=== PATIENT | male | born 1945 | race Asian ===

== ENCOUNTER 2017-12-30 09:36 | Inpatient (IN) | payer MEDICARE, OTHER ==
[~2017-12-30] VITALS: Ht 167.6 cm; Wt 74.8 kg
[2017-12-30 09:44] VITALS: BP 155/59
[2017-12-30] MEDS ORDERED: TAMSULOSIN HCL0.4 MG ORAL (09:44)
[2017-12-30] MEDS ORDERED: PROSTATE 2.4 C1 EAC1 PO (09:44)
[2017-12-30] MEDS ORDERED: HYDROCODON-ACE1 EA15 ORAL (09:44)
[2017-12-30] MEDS ORDERED: [UNRECOGNIZED DRUG - CODE] PO (09:44)
[2017-12-30] MEDS ORDERED: STOOL SOFTENER250 MG PO (09:44)
[2017-12-30] MEDS ORDERED: Sodium Chloride 500ML 500 ML IV ONE (09:48)
[2017-12-30 10:19] LABS: BASOPHILS % (AUTO) 0.7 % (0.0-2.0); EOSINOPHILS % (AUTO) 1.2 % (0.0-3.0); HEMATOCRIT 40.1 % (42.0-52.0); HEMOGLOBIN 13.6 G/DL (14.2-18.0); LYMPHOCYTES % (AUTO) 27.2 % (20.0-45.0); MEAN CORPUSCULAR VOLUME 93 FL (80-99); MONOCYTES % (AUTO) 8.7 % (1.0-10.0); NEUTROPHILS % (AUTO) 62.2 % (45.0-75.0); PLATELET COUNT 219 K/UL (150-450); RED BLOOD COUNT 4.32 M/UL (4.70-6.10); RED CELL DISTRIBUTION WIDTH 12.2 % (11.6-14.8); WHITE BLOOD COUNT 6.7 K/UL (4.8-10.8)
[2017-12-30 10:42] LABS: ANION GAP 3 mmol/L (5-15); BLOOD UREA NITROGEN 34 mg/dL (7-18); CALCIUM 9.3 MG/DL (8.5-10.1); CARBON DIOXIDE 31 MMOL/L (21-32); CHLORIDE 102 MMOL/L (98-107); CREATININE 1.3 MG/DL (0.55-1.30); POTASSIUM 5.1 MMOL/L (3.5-5.1); SODIUM 136 MMOL/L (136-145)
--- NOTE | 2017-12-30 10:54 | Diagnostic Imaging Report ---
Indication: Neck pain Comparison: None Findings: Two views of the neck performed. There is no soft tissue swelling or mass identified. The epiglottis is unremarkable. Subglottic airway and retropharyngeal region appear clear. No radiopaque foreign body is identified. Bones are osteopenic. Spondylosis noted. Impression: Negative soft tissue evaluation of the neck.
[2017-12-30 10:55] LABS: ALANINE AMINOTRANSFERASE 88 U/L (12-78); ALBUMIN 3.5 G/DL (3.4-5.0); ALBUMIN/GLOBULIN RATIO 1.1 (1.0-2.7); ALKALINE PHOSPHATASE 67 U/L (46-116); ASPARTATE AMINO TRANSFERASE 57 U/L (15-37); BILIRUBIN,TOTAL 0.6 MG/DL (0.2-1.0); CREATINE KINASE 656 U/L (26-308)
--- NOTE | 2017-12-30 10:57 | Diagnostic Imaging Report ---
Indication: Cough Comparison: None A single view chest radiograph was obtained. Findings: No definite infiltrate or pulmonary vascular congestion identified. The heart is enlarged. The aorta is mildly enlarged consistent with atherosclerotic vascular disease. Moderate degenerative changes of both shoulders noted. The bones are osteopenic. Impression: No acute disease
[2017-12-30 11:31] LABS: APPEARANCE,URINE CLEAR; BILIRUBIN, URINE NEGATIVE (NEGATIVE); COLOR,URINE BROWN; GLUCOSE, URINE (UA) NEGATIVE (NEGATIVE); KETONES,URINE NEGATIVE (NEGATIVE); LEUKOCYTE ESTERASE ,URINE 1+ (NEGATIVE); NITRITE,URINE NEGATIVE (NEGATIVE); PH,URINE 5 (4.5-8.0); PROTEIN,URINE 2+ (NEGATIVE); UROBILINOGEN,URINE 1 MG/DL (0.0-1.0)
[2017-12-30 12:05] VITALS: BP 130/64
[2017-12-30] MEDS ORDERED: Acetaminophen 650 MG SUPP RECTAL PRN ×2 (12:30)
[2017-12-30] MEDS ORDERED: Albuterol/Ipratropium 3ml neb HHN PRN (12:30)
[2017-12-30] MEDS ORDERED: Miralax 17gm pkt ORAL PRN (12:30)
--- NOTE | 2017-12-30 13:20 | Emergency Room Report ---
History of Present Illness General Chief Complaint: Dizziness Source: Medical Record Present Illness HPI 72-year-old male presents ED for evaluation. Patient comes from assisted living facility with choking episode today. Nursing staff states that patient was choking on a pill and started to vomit. Possible aspiration. Upon arrival patient presenting with vomiting, mild distress. Denies shortness of breath. Denies chest pain. Denies fevers or chills. No other aggravating or relieving factors. Denies any other associated symptoms Allergies: Coded Allergies: No Known Allergies (Unverified , 12/30/17) Patient History Past Medical History: DM, HTN Pertinent Family History: none Social History: Denies: smoking, alcohol use, drug use Immunizations: UTD Reviewed Nursing Documentation: PMH: Agreed, PSxH: Agreed Nursing Documentation-PMH Hx Hypertension: Yes Hx Diabetes: Yes Review of Systems All Other Systems: negative except mentioned in HPI Physical Exam Vital Signs Date Time Temp Pulse Resp B/P (MAP) Pulse Ox O2 Delivery O2 Flow Rate FiO2 12/30/17 09:30 80 16 105/59 97 Room Air 12/30/17 09:44 98.2 98.2 Sp02 EP Interpretation: reviewed, normal General Appearance: alert, GCS 15, non-toxic, mild distress, thin Head: normocephalic Eyes: bilateral eye normal inspection, bilateral eye PERRL ENT: normal ENT inspection Neck: normal inspection Respiratory: no wheezing, crackles Cardiovascular #1: regular rate, rhythm, no edema Gastrointestinal: normal bowel sounds, non tender, soft, non-distended, no guarding, no rebound Rectal: deferred Genitourinary: no CVA tenderness Musculoskeletal: normal inspection Neurologic: alert, oriented x3, responsive, motor strength/tone normal, sensory intact, speech normal Psychiatric: judgement/insight normal, memory normal, mood/affect normal, no suicidal/homicidal ideation Skin: normal inspection Lymphatic: normal inspection Medical Decision Making Diagnostic Impression: Primary Impression: Aspiration into airway Qualified Codes: T17.908S - Unspecified foreign body in respiratory tract, part unspecified causing other injury, sequela Additional Impression: Choking in adult ER Course Hospital Course 72-year-old male presents ED with choking and vomiting episode today at assisted living Differential diagnoses include: Pneumonia, CHF exacerbation, pneumothorax, fluid overload Clinical course Patient placed on stretcher. On alarm security or surveillance monitor. After initial history and physical, I ordered labs, IV fluids, EKG, chest x-ray, blood cultures, UA. Patient placed on nasal cannula with O2 saturation improving Labs -no leukocytosis noted, hemoglobin/hematocrit stable, electrolytes ok, lactate > 2 troponins negative CXR - no signs of foreign body, soft tissue neck - no signs of foreign body EKG - NSR, no acute ischemic changes interpreted by me Clinically patient presenting with an aspiration pneumonia. Abx given. Case discussed with Dr. Medrano and he agreed to the patient to his service for further care and support I feel this is a highly complex case requiring extensive working including EKG/ Rhythm strip, Xray/CT/US, Blood/urine lab work, repeat exams while in ED, and administration of strong opiates/narcotics for pain control, admission to hospital or close patient follow up. Diagnosis - aspiration into airway, choking in adult Patient admitted to telemetry in serious condition Labs Test 12/30/17 10:05 12/30/17 11:03 12/30/17 12:18 White Blood Count 6.7 K/UL (4.8-10.8) Red Blood Count 4.32 M/UL (4.70-6.10) Hemoglobin 13.6 G/DL (14.2-18.0) Hematocrit 40.1 % (42.0-52.0) Mean Corpuscular Volume 93 FL (80-99) Mean Corpuscular Hemoglobin 31.4 PG (27.0-31.0) Mean Corpuscular Hemoglobin Concent 33.8 G/DL (32.0-36.0) Red Cell Distribution Width 12.2 % (11.6-14.8) Platelet Count 219 K/UL (150-450) Mean Platelet Volume 6.9 FL (6.5-10.1) Neutrophils (%) (Auto) 62.2 % (45.0-75.0) Lymphocytes (%) (Auto) 27.2 % (20.0-45.0) Monocytes (%) (Auto) 8.7 % (1.0-10.0) Eosinophils (%) (Auto) 1.2 % (0.0-3.0) Basophils (%) (Auto) 0.7 % (0.0-2.0) Sodium Level 136 MMOL/L (136-145) Potassium Level 5.1 MMOL/L (3.5-5.1) Chloride Level 102 MMOL/L (98-107) Carbon Dioxide Level 31 MMOL/L (21-32) Anion Gap 3 mmol/L (5-15) Blood Urea Nitrogen 34 mg/dL (7-18) Creatinine 1.3 MG/DL (0.55-1.30) Estimat Glomerular Filtration Rate mL/min (>60) Glucose Level 173 MG/DL (74-106) Lactic Acid Level 2.50 mmol/L (0.66-2.22) 1.50 mmol/L (0.66-2.22) Calcium Level 9.3 MG/DL (8.5-10.1) Total Bilirubin 0.6 MG/DL (0.2-1.0) Aspartate Amino Transf (AST/SGOT) 57 U/L (15-37) Alanine Aminotransferase (ALT/SGPT) 88 U/L (12-78) Alkaline Phosphatase 67 U/L (46-116) Total Creatine Kinase 656 U/L (26-308) Creatine Kinase MB 7.0 NG/ML (0.0-3.6) Creatine Kinase MB Relative Index 1.0 Troponin I 0.012 ng/mL (0.000-0.056) Pro-B-Type Natriuretic Peptide 629 pg/mL (0-125) Total Protein 6.8 G/DL (6.4-8.2) Albumin 3.5 G/DL (3.4-5.0) Globulin 3.3 g/dL Albumin/Globulin Ratio 1.1 (1.0-2.7) Urine Color Brown Urine Appearance Clear Urine pH 5 (4.5-8.0) Urine Specific [place] 1.030 (1.005-1.035) Urine Protein 2+ (NEGATIVE) Urine Glucose (UA) Negative (NEGATIVE) Urine Ketones Negative (NEGATIVE) Urine Occult Blood Negative (NEGATIVE) Urine Nitrite Negative (NEGATIVE) Urine Bilirubin Negative (NEGATIVE) Urine Urobilinogen 1 MG/DL (0.0-1.0) Urine Leukocyte Esterase 1+ (NEGATIVE) Urine RBC 0-2 /HPF (0 - 0) Urine WBC 0-2 /HPF (0 - 0) Urine Squamous Epithelial Cells Occasional /LPF Urine Bacteria Occasional /HPF (NONE) Urine Fine Granular Casts 0-2 /LPF (NONE) EKG Diagnostic Results Rate: normal Rhythm: NSR ST Segments: no acute changes ASA given to the pt in ED: No Rhythm Strip Diag. Results EP Interpretation: yes Rhythm: NSR, no PVC's, no ectopy Chest X-Ray Diagnostic Results Chest X-Ray Diagnostic Results : Chest X-Ray Ordered: Yes # of Views/Limited/Complete: 1 View Indication: Shortness of Breath EP Interpretation: Yes Interpretation: no consolidation, no effusion, no pneumothorax, no acute cardiopulmonary disease Impression: No acute disease Electronically Signed by: Electronically signed by Todd Herrera MD Other X-Ray Diagnostic Results Other X-Ray Diagnostic Results : X-Ray ordered: soft tissue neck # of Views/Limited Vs Complete: 2 View Indication: Pain EP Interpretation: Yes Interpretation: no dislocation, no soft tissue swelling, no fractures, other - no foreign body Impression: No acute disease Electronically Signed by: Electronically signed by Todd Herrera MD Last Vital Signs Date Time Temp Pulse Resp B/P (MAP) Pulse Ox O2 Delivery O2 Flow Rate FiO2 12/30/17 12:05 98.1 71 15 130/64 100 Room Air 98.1 Status: improved Disposition: ADMITTED INPATIENT Condition: Serious Referrals: NON PHYSICIAN (PCP) TODD HERRERA M.D. Dec 30, 2017 13:20
[2017-12-30] MEDS: D5 1/2NS 1,000 ML IV SCH (13:24)
[2017-12-30] MEDS: Albuterol/Ipratropium 3ml neb HHN SCH ×2 (15:58→19:18)
[2017-12-30 16:00] VITALS: BP 122/82
--- NOTE | 2017-12-30 16:19 | History and Physical ---
History of Present Illness General Date patient seen: Dec 30, 2017 Time patient seen: 16:19 Reason for Hospitalization: Choking, Vomiting, Aspiration Present Illness HPI 72y/o male with pmh of BPH who presents with episode of chocking and concern for aspiration. Pt is poor historian. Nursing staff states that patient was choking on a pill and started to vomit. Possible aspiration. Denies f/c, chest pain, SOB, abd pain, dysuria. Upon arrival patient presenting with vomiting, mild distress. Concern for aspiration.pneumonitis/pneumonia. Pt given levaquin IV. Allergies: Coded Allergies: No Known Allergies (Unverified , 12/30/17) Medication History Scheduled Calcium Carbonate ([id number]), 500 MG PO Q12HR, (Reported) D3/E/Se/Soy Isofl/Tocoph/Lycop (Prostate 2.4 Capsule), 1 EACH PO DAILY, ( Reported) Docusate Sodium (Stool Softener), 250 MG PO EVERY 12 HOURS, (Reported) Tamsulosin Hcl (Tamsulosin Hcl*), 0.4 MG ORAL DAILY, (Reported) Scheduled PRN Hydrocodone/Acetaminophen 5-325* (Hydrocodone/Acetaminophen 5-325*), 1 TAB ORAL Q8H PRN for For Pain, (Reported) Patient History History Provided By: Patient, Medical Record Healthcare decision maker Resuscitation status Advanced Directive on File Past Medical/Surgical History Past Medical/Surgical History: (1) BPH (benign prostatic hyperplasia) Family History Family History: Patient reports no known family medical history. Social History Social History: (1) Lives in assisted living facility Review of Systems Constitutional: Reports: malaise, weakness Eye: Reports: no symptoms ENT: Reports: no symptoms Respiratory: Reports: no symptoms Cardiovascular: Reports: no symptoms Gastrointestinal: Reports: nausea, vomiting Genitourinary: Reports: no symptoms Musculoskeletal: Reports: no symptoms Skin: Reports: no symptoms Psychiatric: Reports: no symptoms Neurological: Reports: no symptoms Endocrine: Reports: no symptoms Hematologic/Lymphatic: Reports: no symptoms Physical Exam Physical Exam Narrative General: alert, cooperative, no distress, appears stated age Head: normocephalic, without obvious abnormality, atraumatic Eyes: conjunctivae/corneas clear. PERRL, EOM's intact Throat: lips, mucosa, and tongue normal. MMM Neck: supple, symmetrical, trachea midline, and no JVD Lungs: decreased breath sounds b/l Heart: regular rate and rhythm, S1, S2 normal, no murmur, click, rub or gallop Abdomen: soft, non-tender, non-distended, bowel sounds normal; no masses or organomegaly Extremities: extremities normal, atraumatic, no cyanosis or edema Pulses: 2+ and symmetric Skin: skin color, texture, turgor normal; no rashes or lesions Neurologic: grossly normal, no focal deficits Last 24 Hour Vital Signs Date Time Temp Pulse Resp B/P (MAP) Pulse Ox O2 Delivery O2 Flow Rate FiO2 12/30/17 16:06 62 16 99 Room Air 21 12/30/17 15:53 59 16 Room Air 21 12/30/17 15:53 59 16 97 Room Air 21 12/30/17 13:30 98.1 71 15 130/64 100 Room Air 12/30/17 12:05 98.1 71 15 130/64 100 Room Air 98.1 12/30/17 09:44 98.2 69 12 155/59 98 Room Air 98.2 12/30/17 09:30 80 16 105/59 97 Room Air Laboratory Tests Test 12/30/17 10:05 12/30/17 11:03 12/30/17 12:18 White Blood Count 6.7 K/UL (4.8-10.8) Red Blood Count 4.32 M/UL (4.70-6.10) L Hemoglobin 13.6 G/DL (14.2-18.0) L Hematocrit 40.1 % (42.0-52.0) L Mean Corpuscular Volume 93 FL (80-99) Mean Corpuscular Hemoglobin 31.4 PG (27.0-31.0) H Mean Corpuscular Hemoglobin Concent 33.8 G/DL (32.0-36.0) Red Cell Distribution Width 12.2 % (11.6-14.8) Platelet Count 219 K/UL (150-450) Mean Platelet Volume 6.9 FL (6.5-10.1) Neutrophils (%) (Auto) 62.2 % (45.0-75.0) Lymphocytes (%) (Auto) 27.2 % (20.0-45.0) Monocytes (%) (Auto) 8.7 % (1.0-10.0) Eosinophils (%) (Auto) 1.2 % (0.0-3.0) Basophils (%) (Auto) 0.7 % (0.0-2.0) Sodium Level 136 MMOL/L (136-145) Potassium Level 5.1 MMOL/L (3.5-5.1) Chloride Level 102 MMOL/L (98-107) Carbon Dioxide Level 31 MMOL/L (21-32) Anion Gap 3 mmol/L (5-15) L Blood Urea Nitrogen 34 mg/dL (7-18) H Creatinine 1.3 MG/DL (0.55-1.30) Estimat Glomerular Filtration Rate mL/min (>60) Glucose Level 173 MG/DL (74-106) H Lactic Acid Level 2.50 mmol/L (0.66-2.22) H 1.50 mmol/L (0.66-2.22) Calcium Level 9.3 MG/DL (8.5-10.1) Total Bilirubin 0.6 MG/DL (0.2-1.0) Aspartate Amino Transf (AST/SGOT) 57 U/L (15-37) H Alanine Aminotransferase (ALT/SGPT) 88 U/L (12-78) H Alkaline Phosphatase 67 U/L (46-116) Total Creatine Kinase 656 U/L (26-308) H Creatine Kinase MB 7.0 NG/ML (0.0-3.6) H Creatine Kinase MB Relative Index 1.0 Troponin I 0.012 ng/mL (0.000-0.056) Pro-B-Type Natriuretic Peptide 629 pg/mL (0-125) H Total Protein 6.8 G/DL (6.4-8.2) Albumin 3.5 G/DL (3.4-5.0) Globulin 3.3 g/dL Albumin/Globulin Ratio 1.1 (1.0-2.7) Urine Color Brown Urine Appearance Clear Urine pH 5 (4.5-8.0) Urine Specific [place] 1.030 (1.005-1.035) Urine Protein 2+ (NEGATIVE) H Urine Glucose (UA) Negative (NEGATIVE) Urine Ketones Negative (NEGATIVE) Urine Occult Blood Negative (NEGATIVE) Urine Nitrite Negative (NEGATIVE) Urine Bilirubin Negative (NEGATIVE) Urine Urobilinogen 1 MG/DL (0.0-1.0) H Urine Leukocyte Esterase 1+ (NEGATIVE) H Urine RBC 0-2 /HPF (0 - 0) H Urine WBC 0-2 /HPF (0 - 0) Urine Squamous Epithelial Cells Occasional /LPF Urine Bacteria Occasional /HPF (NONE) Urine Fine Granular Casts 0-2 /LPF (NONE) H Height (Feet): 5 Height (Inches): 6.00 Weight (Pounds): 165 Medications Current Medications Medications (Trade) Dose Ordered Sig/Ezekiel Route PRN Reason Start Time Stop Time Status Last Admin Dose Admin Acetaminophen (Tylenol) 650 mg Q4H PRN ORAL Mild Pain (Pain Scale 1-3) 12/30/17 12:30 01/29/18 12:29 Acetaminophen (Tylenol) 650 mg Q4H PRN ORAL fever 12/30/17 12:30 01/29/18 12:29 Acetaminophen (Tylenol) 650 mg Q4H PRN RECTAL Mild Pain (Pain Scale 1-3) 12/30/17 12:30 01/29/18 12:29 Acetaminophen (Tylenol) 650 mg Q4H PRN RECTAL T>100.5 12/30/17 12:30 01/29/18 12:29 Albuterol/ Ipratropium (Albuterol/ Ipratropium) 3 ml Q4H PRN HHN Shortness of Breath 12/30/17 12:30 01/04/18 12:29 Albuterol/ Ipratropium (Albuterol/ Ipratropium) 3 ml Q6HRT HHN 12/30/17 13:00 01/04/18 12:59 12/30/17 15:58 Bisacodyl (Dulcolax) 10 mg HSPRN PRN RECTAL Constipation 12/30/17 12:45 01/29/18 12:29 Dextrose (Dextrose 50%) STAT PRN IV Hypoglycemia 12/30/17 12:30 01/29/18 12:29 Dextrose/Sodium Chloride 1,000 ml @ 75 mls/hr [id number] IV 12/30/17 13:24 01/29/18 13:23 12/30/17 13:24 Docusate Sodium (Colace) 100 mg EVERY 12 HOURS ORAL 12/30/17 21:00 01/29/18 20:59 Heparin Sodium (Porcine) (Heparin 5000 units/ml) 5,000 units EVERY 12 HOURS SUBQ 12/30/17 21:00 01/29/18 20:59 Ondansetron HCl (Zofran) 4 mg Q6H PRN IVP Nausea & Vomiting 12/30/17 12:30 01/29/18 12:29 Polyethylene Glycol (Miralax) 17 gm HSPRN PRN ORAL Constipation 12/30/17 12:30 01/29/18 12:29 Tamsulosin HCl (Flomax) 0.4 mg DAILY ORAL 12/31/17 09:00 01/30/18 08:59 Assessment/Plan Problem List: (1) Concern for aspiration pneumonitis/pneumonia (2) Nausea and vomiting in adult ICD Codes: R11.2 - Nausea with vomiting, unspecified SNOMED: 58181675 (3) Aspiration into airway ICD Codes: T17.908A - Unspecified foreign body in respiratory tract, part unspecified causing other injury, initial encounter SNOMED: 878195135 Qualifiers: Qualified Codes: T17.908S - Unspecified foreign body in respiratory tract, part unspecified causing other injury, sequela (4) BPH (benign prostatic hyperplasia) ICD Codes: N40.0 - Benign prostatic hyperplasia without lower urinary tract symptoms SNOMED: 272853508 Status: stable Assessment/Plan Admit to tele Pulm and GI consulted NPO pending swallow eval IVFs Empiric IV levaquin O2 as needed Duonebs ATC and PRN Pain control, bowel regimen Nausea control Supportive care DVT Prophylaxis: SCD, HSQ Code Status: Full Hospital Classification Declaration: Based on this initial evaluation, and depending on the patient's clinical course, I anticipate that this patient will require hospitalization for 1-3 days for concern for aspiration into airway and close respiratory/hemodynamic monitoring. Disposition: Once the patient is stable to leave the hospital, I anticipate the patient will likely be discharged to the following environment: home with HH vs SNF I spent 69 minutes on this patient's case, and >50% was dedicated to counseling and/or care coordination. Discussed with patient/family, nursing staff, SW/CM, pulm, GI regarding clinical status, treatment course, and disposition planning. Time of note may not reflect time of encounter. Royce Wells M.D. Dec 30, 2017 16:19
[2017-12-30 20:00] VITALS: BP 132/96
[2017-12-30] MEDS ORDERED: Heparin 5000 units/ml inj SUBQ SCH (21:00)
[2017-12-30] MEDS ORDERED: Docusate 100mg cap ORAL SCH (21:00)
[2017-12-31] VITALS: BP 122/52
[2017-12-31] MEDS: Albuterol/Ipratropium 3ml neb HHN SCH ×2 (01:00→07:16)
[2017-12-31] MEDS: D5 1/2NS 1,000 ML IV SCH (03:00)
[2017-12-31 04:00] VITALS: BP_SYST 124; BP_SYST 140; BP_DIAS 61; BP_DIAS 63
[2017-12-31 08:38] LABS: BASOPHILS % (AUTO) 0.5 % (0.0-2.0); EOSINOPHILS % (AUTO) 1.1 % (0.0-3.0); HEMATOCRIT 36.5 % (42.0-52.0); HEMOGLOBIN 12.5 G/DL (14.2-18.0); LYMPHOCYTES % (AUTO) 30.3 % (20.0-45.0); MEAN CORPUSCULAR VOLUME 93 FL (80-99); MONOCYTES % (AUTO) 8.1 % (1.0-10.0); NEUTROPHILS % (AUTO) 60.1 % (45.0-75.0); PLATELET COUNT 216 K/UL (150-450); RED BLOOD COUNT 3.94 M/UL (4.70-6.10); WHITE BLOOD COUNT 7.4 K/UL (4.8-10.8)
[2017-12-31] MEDS ORDERED: Tamsulosin 0.4mg cap ORAL SCH (09:00)
[2017-12-31] MEDS ORDERED: D5 1/2NS 1000ml IV ONE (09:09)
[2017-12-31 09:20] LABS: ALANINE AMINOTRANSFERASE 73 U/L (12-78); ALBUMIN 3.3 G/DL (3.4-5.0); ALBUMIN/GLOBULIN RATIO 1.1 (1.0-2.7); ALKALINE PHOSPHATASE 61 U/L (46-116); ANION GAP 4 mmol/L (5-15); ASPARTATE AMINO TRANSFERASE 42 U/L (15-37); BILIRUBIN,TOTAL 0.6 MG/DL (0.2-1.0); BLOOD UREA NITROGEN 14 mg/dL (7-18); CALCIUM 8.5 MG/DL (8.5-10.1); CARBON DIOXIDE 29 MMOL/L (21-32); CHLORIDE 104 MMOL/L (98-107); POTASSIUM 4.1 MMOL/L (3.5-5.1); SODIUM 137 MMOL/L (136-145)
--- NOTE | 2017-12-31 10:41 | Diagnostic Imaging Report ---
Indication: Dyspnea Comparison: 12/30/2017 A single view chest radiograph was obtained. Findings: No definite infiltrate or pulmonary vascular congestion identified. The heart is enlarged. The aorta is mildly enlarged consistent with atherosclerotic vascular disease. The bones are osteopenic. Impression: No acute disease. No change appreciated.
--- NOTE | 2018-01-01 10:44 | Discharge Summary ---
Discharge Summary Hospital Course Date of Admission Dec 30, 2017 at 11:17 Date of Discharge Dec 31, 2017 at 09:10 Admitting Diagnosis choking episode, vomiting HPI Young Jamil Medeiros is a 72 year old male who was admitted on Dec 30, 2017 at 11:17 for Choking Episode, Vomiting Hospital Course [id number] Discharge Discharge Disposition Patient was discharged to Home (01) Discharge Diagnoses: Maritza Mayen NP Jan 01, 2018 10:44
--- NOTE | 2018-01-02 01:00 | Discharge Summary 2 SIG ---
DATE OF ADMISSION: 12/30/2017 DATE OF DISCHARGE: 12/31/2017 HOSPITAL COURSE: The patient is a 72-year-old male, who presented to ED for complaints of dizziness. The patient is from assisted living and had choking episode and started to vomit. He presented to ED, blood work showed no leukocytosis. Lactic acid was 2.5. He had a chest x-ray that showed no acute cardiopulmonary disease. Soft tissue neck x-ray was negative. He was admitted for possible aspiration. He was admitted to telemetry and was ordered IV fluids and antibiotics, however, full treatment was not carried out as the patient left against medical advice. FINAL DIAGNOSES: 1. Possible aspiration into the airway. 2. Choking in adult. DISPOSITION: The patient left AMA. Royce Wells M.D. I have been assigned to dictate discharge summary on this account and I was not involved in the patient's management. Maritza Mayen N.P. DR: HARRY JOB#: [id number] CC:
--- NOTE | 2018-01-03 16:25 | Cardiology Report ---
APPROVED REPORT EKG Measurement Heart [id number] Normal sinus rhythm Normal ECG
--- NOTE | 2018-01-26 23:20 | Discharge Summary ---
Discharge Summary Hospital Course Date of Admission Dec 30, 2017 at 11:17 Date of Discharge Dec 31, 2017 at 09:10 Admitting Diagnosis choking episode, vomiting Reason for Hospitalization: concern for aspiration pneumonitis/pneumonia HPI 72y/o male with pmh of BPH who presents with episode of chocking and concern for aspiration. Pt is poor historian. Nursing staff states that patient was choking on a pill and started to vomit. Possible aspiration. Denies f/c, chest pain, SOB, abd pain, dysuria. Upon arrival patient presenting with vomiting, mild distress. Concern for aspiration.pneumonitis/pneumonia. Pt given levaquin IV. Consultations Pulmonology, Gastroenterology Hospital Course Pt was admitted to [facility]. He was placed NPO pending swallow eval. He was given empiric IV antibiotics. Pulm and Gi were consulted. Prior to completion of workup pt decided to leave AMA. Pt states that he had a court appt that he could not miss. Risks discussed and pt still wishes to leave. Discharge Condition Upon Discharge: stable Discharge Disposition Pt left against medical advice Discharge Diagnoses: (1) Concern for aspiration pneumonitis/pneumonia (2) Aspiration into airway (3) Nausea and vomiting in adult (4) BPH (benign prostatic hyperplasia) Royce Wells M.D. Jan 26, 2018 23:20
== END 2017-12-31 09:10 | disposition left against medical advice (07) | DRG 206 ==
LOC: EDBD 09:36 → EMR 10:14 → 2E 11:17 → EDBEDREQ 12:34
DX: T17.990A Other foreign object in respiratory tract, part unspecified in causing asphyxiation, initial encounter (principal); E11.9 Type 2 diabetes mellitus without complications; I10 Essential (primary) hypertension; X58.XXXA Exposure to other specified factors, initial encounter; Y92.099 Unspecified place in other non-institutional residence as the place of occurrence of the external cause; R11.10 Vomiting, unspecified
CPT/HCPCS: 36415; 70360; 71045; 80053; 81003; 82550; 82553; 82962; 83605; 83880; 84484; 85025; 87040; 87081; 93005; 94640; 94664; 99285; J2405; J7620